=== PATIENT | male | born 2000 | race Caucasian/White ===

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

== ENCOUNTER 2021-01-09 19:44 | Inpatient (IN) | payer OTHER ==
[~2021-01-09] VITALS: Ht 175.3 cm; Wt 70.3 kg
[2021-01-09 20:06] LABS: BASOPHILS ABSOLUTE AUTO 0.07 K/mm3 (0.00-0.23); BASOPHILS PERCENT AUTO 1 % (0-2); EOSINOPHILS ABSOLUTE AUTO 0.04 K/mm3 (0.00-0.68); EOSINOPHILS PERCENT AUTO 1 % (0-6); Hemoglobin 15.3 g/dL (13.5-17.5); IMMATURE GRAN ABSOLUTE AUTO 0.03 K/mm3 (0.00-0.10); IMMATURE GRAN PERCENT AUTO 0 % (0-1); LYMPHOCYTES ABSOLUTE AUTO 0.76 K/mm3 (0.84-5.20); LYMPHOCYTES PERCENT AUTO 9 % (21-46); MONOCYTES ABSOLUTE AUTO 0.79 K/mm3 (0.16-1.47); MONOCYTES PERCENT AUTO 9 % (4-13); Mean Corpuscular HGB 29.4 pg (26.0-34.0); Mean Corpuscular HGB Conc 34.8 g/dL (31.5-36.5); Mean Corpuscular Volume 85 fL (80-100); NEUTROPHILS ABSOLUTE AUTO 6.99 K/mm3 (1.96-9.15); NEUTROPHILS PERCENT AUTO 81 % (41-73); Platelet Count 254 K/mm3 (150-400); RDW Coefficient Variation 12.1 % (11.7-14.2); RDW Standard Deviation 37.3 fL (35.1-46.3); White Blood Cell Count 8.68 K/mm3 (4.00-11.30)
[2021-01-09 20:21] LABS: Alanine Aminotransfer (ALT/SGP 30 U/L (12-78); Albumin, Blood 4.2 g/dL (3.4-5.0); Alk Phos 84 U/L (58-237); Anion Gap 6 mmol/L (6-16); Aspartate Aminotrans (AST/SGOT 20 U/L (12-37); Bilirubin, Total 0.6 mg/dL (0.1-1.0); Blood Urea Nitrogen 13 mg/dL (8-21); CO2, Blood 23 mmol/L (21-32); Calcium, Blood 9.7 mg/dL (8.5-10.1); Chloride, Blood 108 mmol/L (98-108); Ethanol (Alcohol), Blood, Med <3 mg/dL; Glomerular Filtration Rate >60 (60-); Glucose, Blood 85 mg/dL (70-99); Potassium, Blood 3.8 mmol/L (3.5-5.5); Salicylate <1.7 mg/dL (2.8-20.0); Sodium, Blood 137 mmol/L (136-145); Total Protein, Blood 8.2 g/dL (6.4-8.2)
[2021-01-09] MEDS ORDERED: LITHIUM CARBON450 M1 PO (20:26)
[2021-01-09 20:34] LABS: Acetaminophen, Random <2.0 ug/mL (10.0-30.0)
[2021-01-09 21:35] LABS: Lithium 2.16 mmol/L (0.60-1.20)
[2021-01-09 23:23] LABS: Source, Urine Clean Catch
[2021-01-09 23:27] LABS: Bilirubin, Urine Neg (Neg); Blood, Urine 1+ (Neg); Glucose Qualitative, Urine Neg (Neg); Ketones, Urine 4+ (Neg); Leukocyte Esterase, Urine 1+ (Neg); Nitrite, Urine Neg (Neg); Protein, Urine 2+ (Neg); Urobilinogen, Urine 1+ (Normal)
[2021-01-09 23:28] LABS: Appearance, Urine Clear (Clear); Color, Urine Yellow (P-Yellow)
[2021-01-09 23:34] LABS: Bacteria Many /hpf; Mucus Light (0-Heavy); Red Blood Cells, Urine 0-2 /hpf (0-2); Squamous Epithelial Cells Not Seen /hpf (Few)
[2021-01-09 23:39] LABS: U Amphetamine Screen Not Detected; U Barbituate Screen Not Detected; U Benzodiazapine Screen Not Detected; U Buprenorphine Screen Not Detected; U Cannabinoids Screen DETECTED; U Cocaine Screen Not Detected; U Methadone Screen Not Detected; U Methamphetamine Screen Not Detected; U Opiates Screen Not Detected; U Oxycodone Screen Not Detected; U Phencyclidine Screen Not Detected; U Propoxyphene Screen Not Detected
[2021-01-10 00:01] LABS: Anion Gap 7 mmol/L (6-16); Blood Urea Nitrogen 13 mg/dL (8-21); Bun/Creatinine Ratio 11.9 (12.0-20.0); CO2, Blood 24 mmol/L (21-32); Calcium, Blood 9.8 mg/dL (8.5-10.1); Chloride, Blood 104 mmol/L (98-108); Creatinine, Blood 1.09 mg/dL (0.60-1.20); Glomerular Filtration Rate >60 (60-); Glucose, Blood 101 mg/dL (70-99); Potassium, Blood 3.6 mmol/L (3.5-5.5); Sodium, Blood 135 mmol/L (136-145)
[2021-01-10 01:01] LABS: Lithium 4.59 mmol/L (0.60-1.20)
[2021-01-10 05:43] LABS: BASOPHILS ABSOLUTE AUTO 0.03 K/mm3 (0.00-0.23); BASOPHILS PERCENT AUTO 0 % (0-2); EOSINOPHILS ABSOLUTE AUTO 0.01 K/mm3 (0.00-0.68); EOSINOPHILS PERCENT AUTO 0 % (0-6); Hematocrit 47.2 % (37.0-53.0); Hemoglobin 16.3 g/dL (13.5-17.5); IMMATURE GRAN ABSOLUTE AUTO 0.11 K/mm3 (0.00-0.10); IMMATURE GRAN PERCENT AUTO 1 % (0-1); LYMPHOCYTES ABSOLUTE AUTO 0.65 K/mm3 (0.84-5.20); LYMPHOCYTES PERCENT AUTO 4 % (21-46); MONOCYTES ABSOLUTE AUTO 0.76 K/mm3 (0.16-1.47); MONOCYTES PERCENT AUTO 5 % (4-13); Mean Corpuscular HGB 29.5 pg (26.0-34.0); Mean Corpuscular HGB Conc 34.5 g/dL (31.5-36.5); Mean Corpuscular Volume 85 fL (80-100); Mean Platelet Volume 11.2 fL (9.1-12.4); NEUTROPHILS ABSOLUTE AUTO 13.11 K/mm3 (1.96-9.15); NEUTROPHILS PERCENT AUTO 89 % (41-73); Platelet Count 268 K/mm3 (150-400); RDW Coefficient Variation 12.2 % (11.7-14.2); RDW Standard Deviation 37.8 fL (35.1-46.3); Red Blood Cell Count 5.53 M/mm3 (4.30-5.90); White Blood Cell Count 14.67 K/mm3 (4.00-11.30)
[2021-01-10 06:02] LABS: Alanine Aminotransfer (ALT/SGP 37 U/L (12-78); Albumin, Blood 4.3 g/dL (3.4-5.0); Alk Phos 72 U/L (58-237); Anion Gap 6 mmol/L (6-16); Aspartate Aminotrans (AST/SGOT 20 U/L (12-37); Bilirubin, Total 0.7 mg/dL (0.1-1.0); Blood Urea Nitrogen 15 mg/dL (8-21); Bun/Creatinine Ratio 11.5 (12.0-20.0); CO2, Blood 19 mmol/L (21-32); Calcium, Blood 9.6 mg/dL (8.5-10.1); Chloride, Blood 106 mmol/L (98-108); Creatinine, Blood 1.31 mg/dL (0.60-1.20); Globulin, Blood 4.3 g/dL (2.2-4.0); Glomerular Filtration Rate >60 (60-); Glucose, Blood 96 mg/dL (70-99); Potassium, Blood 4.3 mmol/L (3.5-5.5); Sodium, Blood 131 mmol/L (136-145); Total Protein, Blood 8.6 g/dL (6.4-8.2)
--- NOTE | 2021-01-10 06:07 | NUR ---
SHIFT SUMMARY PT ARRIVED FROM ER AT 0200. PT C/O SEVERE ABD DISCOMFORT. NAUSEA AND VOMITING. ALERT AND ORIENTED, BUT ODD BEHAVIOR. LITHIUM WAS 4.59 WHEN POISON CONTROL CALLED, RECOMMENDING DIALYSIS. ADMITTING HOSPITALIST DECIDED AGAINST DIALYSIS ATTHIS TIME PT APPEARED TO BE MORE STABLE. FEW HOURS LATER, PT COMPLAINING OF CHEST PAIN, NUMBNESS, CHILLS. HAVING OBVIOUS DIFFICULTY SPEAKING OR GETTING WORDS OUT. VOMITED ABOUT 1L OF EMESIS - YELLOW/ORANGE COLORED. STATES "FEELS LIKE HES DYING". EKG DONE WITH NO OBVIOUS CHANGES. 1:1 SITTER. PRN NAUSEA MEDS AROUND THE CLOCK. ALL VITAL SIGNS ARE STABLE. PENDING REPEAT LABS - WILL CONTINUE TO MONITOR.
[2021-01-10 06:38] LABS: Lithium 7.81 mmol/L (0.60-1.20)
--- NOTE | 2021-01-10 07:25 | NUR ---
Bedside report received from Bree Aguayo RN. Pt is responsive to conversation, answering softly. Denies any needs at this time. new order fro dr. Hyde for [place] level. Verified by cold working supervisor with [facility] by phone for new lithium order. drawn, and Barrett requested that the result be called to him, within an hour.
--- NOTE | 2021-01-10 10:04 | NUR ---
Calls made to Dr. Hyde to report slight decrease in lithium level; Call made to Dr. Dia to request consultation for temporary dialysis catheter for lithium toxicity. Dr. Dia states that he does not need to move the pt from PCU in order to do this.
[2021-01-10 12:41] LABS: Anion Gap 8 mmol/L (6-16); Blood Urea Nitrogen 17 mg/dL (8-21); Bun/Creatinine Ratio 12.5 (12.0-20.0); CO2, Blood 21 mmol/L (21-32); Calcium, Blood 8.8 mg/dL (8.5-10.1); Chloride, Blood 108 mmol/L (98-108); Creatinine, Blood 1.36 mg/dL (0.60-1.20); Glomerular Filtration Rate >60 (60-); Glucose, Blood 72 mg/dL (70-99); Sodium, Blood 137 mmol/L (136-145)
--- NOTE | 2021-01-10 13:02 | NUR ---
Pt requested to speak to his father by phone before having temporary dialysis catheter placement for [place] toxicity. Phone was taken out of the locked closet in the pt's room and pt was able to speak with his father, Sergey. After phone call the phone was then placed back in the closet and the closet was locked.
[2021-01-10 13:28] LABS: Lithium 6.24 mmol/L (0.60-1.20)
[2021-01-10 15:08] LABS: Influenza A, PCR NEGATIVE (NEGATIVE); Influenza B, PCR NEGATIVE (NEGATIVE); Resp Syncytial Virus, PCR NEGATIVE (NEGATIVE); SARS-Cov-2 (COVID-19) PCR, MMC NEGATIVE (NEGATIVE)
--- NOTE | 2021-01-10 16:37 | NUR ---
Pt became nauseous at approx 1500 and vomited 150 ml emisis. 4 mg Zofran given IV push to pt per orders. At 1545 pt stated that he was no longer feeling sick to his stomach.
[2021-01-10 18:29] LABS: Anion Gap 10 mmol/L (6-16); Blood Urea Nitrogen 16 mg/dL (8-21); Bun/Creatinine Ratio 12.3 (12.0-20.0); CO2, Blood 19 mmol/L (21-32); Calcium, Blood 9.2 mg/dL (8.5-10.1); Chloride, Blood 110 mmol/L (98-108); Glomerular Filtration Rate >60 (60-); Glucose, Blood 65 mg/dL (70-99); Potassium, Blood 4.1 mmol/L (3.5-5.5); Sodium, Blood 139 mmol/L (136-145)
--- NOTE | 2021-01-10 19:05 | NUR ---
Pt had dialysis catheter placed at approx 1830. Procedure was done in pt room, and pt tolerated well. Pt is resting now and denies pain.
[2021-01-10 19:52] LABS: Albumin, Blood 3.6 g/dL (3.4-5.0); Anion Gap 10 mmol/L (6-16); Blood Urea Nitrogen 16 mg/dL (8-21); Bun/Creatinine Ratio 12.8 (12.0-20.0); CO2, Blood 18 mmol/L (21-32); Calcium, Blood 8.9 mg/dL (8.5-10.1); Chloride, Blood 111 mmol/L (98-108); Creatinine, Blood 1.25 mg/dL (0.60-1.20); Glomerular Filtration Rate >60 (60-); Glucose, Blood 74 mg/dL (70-99); Potassium, Blood 3.8 mmol/L (3.5-5.5); Sodium, Blood 139 mmol/L (136-145)
[2021-01-10 20:36] LABS: Lithium 4.23 mmol/L (0.60-1.20)
[2021-01-11 00:12] LABS: Anion Gap 9 mmol/L (6-16); Blood Urea Nitrogen 11 mg/dL (8-21); Bun/Creatinine Ratio 11.1 (12.0-20.0); CO2, Blood 22 mmol/L (21-32); Calcium, Blood 7.9 mg/dL (8.5-10.1); Chloride, Blood 109 mmol/L (98-108); Creatinine, Blood 0.99 mg/dL (0.60-1.20); Glomerular Filtration Rate >60 (60-); Glucose, Blood 75 mg/dL (70-99); Potassium, Blood 2.9 mmol/L (3.5-5.5); Sodium, Blood 140 mmol/L (136-145)
[2021-01-11 01:22] LABS: Lithium 2.36 mmol/L (0.60-1.20)
[2021-01-11 04:37] LABS: Hematocrit 36.4 % (37.0-53.0); Hemoglobin 12.4 g/dL (13.5-17.5)
[2021-01-11 04:52] LABS: Anion Gap 8 mmol/L (6-16); Blood Urea Nitrogen 12 mg/dL (8-21); Bun/Creatinine Ratio 11.3 (12.0-20.0); CO2, Blood 22 mmol/L (21-32); Calcium, Blood 8.1 mg/dL (8.5-10.1); Chloride, Blood 109 mmol/L (98-108); Creatinine, Blood 1.06 mg/dL (0.60-1.20); Glomerular Filtration Rate >60 (60-); Glucose, Blood 79 mg/dL (70-99); Magnesium, Blood 1.8 mg/dL (1.6-2.4); Phosphorus, Blood 2.6 mg/dL (2.5-4.9); Potassium, Blood 3.2 mmol/L (3.5-5.5); Sodium, Blood 139 mmol/L (136-145)
--- NOTE | 2021-01-11 05:07 | NUR ---
shift summary pt alert and oriented, able to make needs known. cooperative with plan of care. shortly received trialysis cath and was dialyzed at bedside from [id number]. lithium down to 2.36, trending in right direction. kidney function improving, and potassium slighly low at 2.9 - md notified and replacement potassium was administered - see emar. rn in touch with poison control throughut night. sats >90% on room air. tele sinus chen to nsr. voids to urinal, no uop through night. no bm. no c/o pain. vss. pt did c/o a little discomfort while lying in bed, cursing some, but no changes in pt neuro status. states he is feeling much better than before. call light within reach, bed in lowest position. will continue to monitor.
[2021-01-11 05:24] LABS: BASOPHILS ABSOLUTE AUTO 0.04 K/mm3 (0.00-0.23); BASOPHILS PERCENT AUTO 0 % (0-2); EOSINOPHILS ABSOLUTE AUTO 0.04 K/mm3 (0.00-0.68); EOSINOPHILS PERCENT AUTO 0 % (0-6); IMMATURE GRAN ABSOLUTE AUTO 0.06 K/mm3 (0.00-0.10); IMMATURE GRAN PERCENT AUTO 0 % (0-1); LYMPHOCYTES ABSOLUTE AUTO 1.55 K/mm3 (0.84-5.20); LYMPHOCYTES PERCENT AUTO 10 % (21-46); MONOCYTES ABSOLUTE AUTO 2.15 K/mm3 (0.16-1.47); MONOCYTES PERCENT AUTO 14 % (4-13); Mean Corpuscular HGB 29.7 pg (26.0-34.0); Mean Corpuscular HGB Conc 33.4 g/dL (31.5-36.5); Mean Corpuscular Volume 89 fL (80-100); Mean Platelet Volume 11.9 fL (9.1-12.4); NEUTROPHILS ABSOLUTE AUTO 11.05 K/mm3 (1.96-9.15); NEUTROPHILS PERCENT AUTO 74 % (41-73); Platelet Count 186 K/mm3 (150-400); RDW Coefficient Variation 12.7 % (11.7-14.2); RDW Standard Deviation 41.3 fL (35.1-46.3); Red Blood Cell Count 4.18 M/mm3 (4.30-5.90); White Blood Cell Count 14.89 K/mm3 (4.00-11.30)
[2021-01-11 05:37] LABS: Lithium 2.58 mmol/L (0.60-1.20)
[2021-01-11 09:04] LABS: Lithium 2.51 mmol/L (0.60-1.20)
[2021-01-11 13:02] LABS: Lithium 2.08 mmol/L (0.60-1.20)
--- NOTE | 2021-01-11 14:29 | NUR ---
Pt does not appear to be agitated and has been fully cooperative and proactive in his own care. He ate breakfast and lunch and complained of slight nausea after lunch. He bathed today with the assistance of DRILL INSTRUCTOR[employer]S and has no current complains of n/v or pain.
--- NOTE | 2021-01-11 18:25 | NUR ---
aSSUMED PT CARE AT 0700 AT WHICH TIME HE WAS ASLEEP. pT WAS SEEN BY DOC THIS a.m. AND npo STATUS WAS CHANGED TO REGULAR DIET, TOLERATED. pT ATE MOST OF HIS BREAKFAST AND STATED THAT IT WAS REALLY GOOD TO ENJOY A MEAL. hE ATE ABOUT ABOUT HALF OF HIS LUNCH AND ABOUT A QUARTER OF HIS DINNER. pT MAY BE MOVED TO MEDICAL FLOOR, PENDING ROOM ASSIGNMENT. pT STATES HE IS FEELING MUCH BETTER TODAY WITH LITTLE TO NO N/V. hE SPENT MUCH OF THE DAY SLEEPING BUT DID HAVE A SHOWER THIS AFTERNOON. hE HAS BEEN PLEASANT AND COOPERATIVE AND HAD A VISIT FROM HIS FATHER, Neri, THIS EVENING. lITHIUM LEVEL WAS AT 2.08 OF THIS AFTERNOON.
--- NOTE | 2021-01-12 02:54 | NUR ---
PT IS A/OX4, CALM AND COOPERATIVE. PT IS UNDER MODERATE SI PRECAUTIONS. AT 0230 PT BECOME AGITATED, YELLING "I CANT DO THIS, I CANT DO THIS, WHY CANT I FEEL ANYTHING, I JUST WANNA FEEL SOMETHING. I DONT KNOW WHY I CANT FIND THEM, WHERE ARE THEY? WHY CANT I FEEL ANYTHING" PT STRUGGLES TO ELABERATE. RN REMAINS WITH PATIENT, OFFERING EMOTIONAL SUPPORT WITH THERAPEUTIC TOUCH AND PLAN TO CONNECT WITH FATHER WHEN HE WAKES UP (PER PT) AT 0600. PT IS AGREEABLE TO TAKING MELATONIN. TEARFUL, HOLDING RNS HAND, PT FALLS ASLEEP. CONTINUE TO MONITOR RISK FOR HARM. PLAN TO REASSESS LITHIUM LEVELS WITH AM LABS.
[2021-01-12 07:20] LABS: Hematocrit 38.6 % (37.0-53.0); Hemoglobin 13.2 g/dL (13.5-17.5)
[2021-01-12 07:32] LABS: Albumin, Blood 3.3 g/dL (3.4-5.0); Anion Gap 5 mmol/L (6-16); Blood Urea Nitrogen 11 mg/dL (8-21); Bun/Creatinine Ratio 12.2 (12.0-20.0); CO2, Blood 26 mmol/L (21-32); Calcium, Blood 9.1 mg/dL (8.5-10.1); Chloride, Blood 104 mmol/L (98-108); Glomerular Filtration Rate >60 (60-); Glucose, Blood 90 mg/dL (70-99); Magnesium, Blood 1.9 mg/dL (1.6-2.4); Phosphorus, Blood 2.5 mg/dL (2.5-4.9); Potassium, Blood 3.1 mmol/L (3.5-5.5); Sodium, Blood 135 mmol/L (136-145)
[2021-01-12 07:36] LABS: Lithium 1.33 mmol/L (0.60-1.20)
[2021-01-12 09:10] LABS: HBSAG SCREEN Negative (Negative); HEP A AB, IGM Negative (Negative); HEP B CORE AB, IGM Negative (Negative); HEP C VIRUS AB 0.1 (0.0-0.9)
--- NOTE | 2021-01-12 18:03 | NUR ---
PATIENT IS ALERT AND ORIENTED X4. UP AD JEFF, ROOM AIR. NO COMPLAINTS OF PAIN OR DISTRESS. PATIENT STATES NO DESIRES OR THOUGHT OF SELF HARM. CAMERA MONITORING PATIENT 06/10. BSSR TO BE GIVEN TO DIRECTOR BUILDING NURSE.
[2021-01-13 04:21] LABS: Hematocrit 39.5 % (37.0-53.0); Hemoglobin 13.8 g/dL (13.5-17.5)
[2021-01-13 04:37] LABS: Albumin, Blood 3.4 g/dL (3.4-5.0); Anion Gap 6 mmol/L (6-16); Blood Urea Nitrogen 10 mg/dL (8-21); Bun/Creatinine Ratio 10.9 (12.0-20.0); CO2, Blood 27 mmol/L (21-32); Calcium, Blood 9.2 mg/dL (8.5-10.1); Chloride, Blood 104 mmol/L (98-108); Creatinine, Blood 0.92 mg/dL (0.60-1.20); Glomerular Filtration Rate >60 (60-); Glucose, Blood 95 mg/dL (70-99); Magnesium, Blood 1.7 mg/dL (1.6-2.4); Phosphorus, Blood 3.4 mg/dL (2.5-4.9); Potassium, Blood 3.4 mmol/L (3.5-5.5); Sodium, Blood 137 mmol/L (136-145)
--- NOTE | 2021-01-13 07:33 | NUR ---
SUMMARY PT TEARFUL THIS AM.STATES WOKE AND FORGOT WHERE HE WAS AND HIS FAMILY.WITH ENC OF RELAXATION TECHNIQUES,PT WS ABLE TO STATE HE WAS IN [place]. STATED REASON FOR ADMIT AND TALKED OF FAMILY INCLUDING FAMILY DOG.REASSURED PT. PT STATES UPSET OVER BEING TEARFEUL. ENC AND SUPPORT GIVEN. PT RELAXED,CALMER.
--- NOTE | 2021-01-13 18:42 | NUR ---
PATIENT IS ALERT AND ORIENTED X4. NO COMPLAINTS OF PAIN OR DISTRESS. ON ROOM AIR. 24 HOUR CAMERA SURVAILANCE. ON OBERSATION AT THE MOMENT. NO NEW CHANGES. BSSR TO BE GIVEN TO CAKE WASHER NURSE.
[2021-01-14 03:57] LABS: Hematocrit 42.5 % (37.0-53.0); Hemoglobin 14.9 g/dL (13.5-17.5)
[2021-01-14 04:21] LABS: Albumin, Blood 3.6 g/dL (3.4-5.0); Anion Gap 8 mmol/L (6-16); Blood Urea Nitrogen 12 mg/dL (8-21); Bun/Creatinine Ratio 12.8 (12.0-20.0); CO2, Blood 25 mmol/L (21-32); Calcium, Blood 9.5 mg/dL (8.5-10.1); Chloride, Blood 105 mmol/L (98-108); Creatinine, Blood 0.94 mg/dL (0.60-1.20); Glomerular Filtration Rate >60 (60-); Glucose, Blood 100 mg/dL (70-99); Magnesium, Blood 1.7 mg/dL (1.6-2.4); Potassium, Blood 3.5 mmol/L (3.5-5.5); Sodium, Blood 138 mmol/L (136-145)
--- NOTE | 2021-01-14 05:25 | NUR ---
EDUCATION LIAISON SUMMARY PT HAS REMAINED AXO X4 THIS SHIFT. PT HAS DENIED ANY PAIN OR NAUSEA THIS SHIFT. PT REPORTS ON AND OFF THOUGHT OF SI BUT WAS PLEASANT AND COOPERATIVE WITH CARE THIS SHIFT. PT WAS TEARFULL AND UPSET THIS AM WITH HIS SITUATION SO THIS RN SAT WITH THE PT FOR 45 MINUTES AND DISCUSSED HIS NEGATIVE THOUGHTS AND HIS PLANS MOVING FORWARD. PT EXPRESSED HIS GRATITUDE AND SAID HE FELT BETTER AFTER TALKING. PT'S BP WNL AND STABLE AND O2 SATS >92% ON RM AIR THIS SHIFT. WILL REPORT TO ONCOMING RN.
[2021-01-14] MEDS ORDERED: MELA3 PO (14:19)
== END 2021-01-14 15:22 | disposition home or self-care (01) | DRG 918 ==
LOC: ER 19:44 → PCU 19:45
PROVIDERS: Emergency Medicine; Internal Medicine; Internal Medicine Nephrology; Radiology Diagnostic Radiology; ADMIT Internal Medicine
PROC: 02HV33Z Insertion of Infusion Device into Superior Vena Cava, Percutaneous Approach (ICD-10-PCS; principal; 2021-01-10)
PROC: 5A1D70Z Performance of Urinary Filtration, Intermittent, Less than 6 Hours Per Day (ICD-10-PCS; 2021-01-10)
DX: T43.592A Poisoning by other antipsychotics and neuroleptics, intentional self-harm, initial encounter (principal); E87.1 Hypo-osmolality and hyponatremia; E87.2 Acidosis; E87.6 Hypokalemia; E86.9 Volume depletion, unspecified; Z79.899 Other long term (current) drug therapy; N28.9 Disorder of kidney and ureter, unspecified; D64.9 Anemia, unspecified; E88.09 Other disorders of plasma-protein metabolism, not elsewhere classified; F25.0 Schizoaffective disorder, bipolar type; Z20.822 Contact with and (suspected) exposure to COVID-19
CPT/HCPCS: 0241U; 36415; 71045; 80048; 80053; 80069; 80074; 80178; 81001; 83735; 85014; 85018; 85025; 86317; 87086; 93005; 93010; 96374; 96375; 96376; 99285-25; A9270; G0378; G0480; J0780; J1650; J2250; J2405; J2765; J3010; J3480; J7030; J7040